=== PATIENT | male | born 1965 | race Caucasian/White ===

== ENCOUNTER 2018-02-17 09:10 | Emergency (ER) | payer BC, OTHER ==
[~2018-02-17] VITALS: Ht 172.7 cm; Wt 65.8 kg
[2018-02-17 09:19] VITALS: BP_SYST 124
[2018-02-17] MEDS ORDERED: DIPH-TET-PERTUS Vaccine 0.5 ML VIAL (ADACEL) I.M. ONE ×2 (09:45→10:00)
[2018-02-17] MEDS ORDERED: LIDOCAINE 1% 10 MG/ML, 20 ML MDV IJ ONE (10:30)
[2018-02-17 11:50] VITALS: BP_SYST 124
== END 2018-02-17 11:50 | disposition home or self-care (01) ==
LOC: SED 09:10
DX: S62.613A Displaced fracture of proximal phalanx of left middle finger, initial encounter for closed fracture (principal); S61.213A Laceration without foreign body of left middle finger without damage to nail, initial encounter; S61.211A Laceration without foreign body of left index finger without damage to nail, initial encounter; S61.412A Laceration without foreign body of left hand, initial encounter; R03.0 Elevated blood-pressure reading, without diagnosis of hypertension; W20.8XXA Other cause of strike by thrown, projected or falling object, initial encounter; Y93.89 Activity, other specified; Y92.89 Other specified places as the place of occurrence of the external cause; Y99.8 Other external cause status
CPT/HCPCS: 12002; 73130; 90471; 90715; 99284; J2001